=== PATIENT | female | born 1930 | race Caucasian/White ===

== ENCOUNTER 2016-04-02 05:16 | Inpatient (IN) | payer MEDICARE ==
[2016-04-02] VITALS (15 sets, daily range): BP systolic 155–202; BP diastolic 74–100; PULSE 79–101; RESP 16–20; TEMP 98–100; O2SAT 92–97
[~2016-04-02] VITALS: Ht 160 cm; Wt 66.6 kg
[~2016-04-02 05:16] MED LIST: ENOX40P SQ; HYDR-3129 PO; HYDR10 PO; LACTCAP7 PO; MAGN250T13 PO; NEBI5 PO; NIFE1TAB85 PO; SYNT100T PO; TAB-TAB PO
[2016-04-02] MEDS ORDERED: MAGN250T2 PO (05:43)
[2016-04-02] MEDS ORDERED: NIFE1TAB85 PO (05:43)
[2016-04-02] MEDS ORDERED: HYDR-755 PO (05:43)
[2016-04-02] MEDS ORDERED: MULT1TAB84 PO (05:43)
[2016-04-02] MEDS ORDERED: LEVO.125 PO (05:43)
--- NOTE | 2016-04-02 05:53 | PD ---
HPI Chief Complaint: Respiratory Symptoms Time Seen by Provider: 05:33 Travel History International Travel<30 days: No Contact w/Intl Traveler<30days: No Traveled to known affect area: No History of Present Illness HPI The patient is an 86-year-old female who has a history of congestive heart failure who complains of shortness of breath for 2 days. She says it's like she can't take a deep breath. She states her just 6 days ago. She denies any chest discomfort except for a sharp, pleuritic chest pain on the left lateral-anterior chest wall. She does not smoke. She does not have a history of COPD. 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) Hiatal Hernia: No Hypertension: Yes Immune Disorder: Yes (UNKNOWN NAME TO AUTOIMMUNE DIS.) Implanted Vascular Access Dvce: Yes Musculoskeletal: Yes (ARTHRITIS ) Neurologic: No Psychiatric: No Reproductive: No Respiratory: No Immunizations Current: Yes Thyroid Disease: Yes (HYPOTHYROIDISM) Ulcer: Yes Menopausal: Yes Ovarian Cysts: Yes ("REMOVED") Past Surgical History Abdominal Surgery: No ( COLOSTOMY, REVERSED COLOSTOMY,PEG TUBE, SIGMOID COLECTOMY,CHOLY,APPY) AICD: No Appendectomy: Yes Arteriovenous Shunt: No Body Medical Devices: MESH IN ABDOMEN Cardiac Surgery: No Ear Surgery: No Endocrine Surgery: No Eye Surgery: Yes (MANDY CATARACT WITH LENS IMPLANT) Genitourinary Surgery: No Gynecologic Surgery: Yes (CYST REMOVED FROM OVARY, HYSTERECTOMY) Hysterectomy: Yes Joint Replacement: Yes (RIGHT KNEE) Oral Surgery: Yes (TONSILLECTOMY) Pacemaker: No Thoracic Surgery: No Other Surgery: Yes Social History Alcohol Use: Yes (RARELY) Tobacco Use: No Substance Use: No Allergies-Medications (Allergen,Severity, Reaction): Coded Allergies: Cipro (Unverified Allergy, Severe, AFFECTS ABILITY TO WALK, 04/02/16) Levaquin (Verified Allergy, Severe, AFFECTED NERVES, 04/02/16) Reported Meds & Prescriptions Reported Meds & Active Scripts Active Lasix (Furosemide) 20 Mg Tab 20 Mg PO DAILY Reported Procardia XL (Nifedipine) 30 Mg Tab 30 Mg PO DAILY Multivitamin Adults (Multiple Vitamins W/ Minerals) 1 Tab 1 Tab PO DAILY Magnesium 250 Mg Tab 250 Mg PO DAILY Synthroid (Levothyroxine Sodium) 125 Mcg Tab 125 Mcg PO DAILY Hydroxyzine HCl 10 Mg Tab 10 Mg PO HS PRN Review of Systems Except as stated in HPI: all other systems reviewed are Neg Physical Exam Narrative GENERAL: The patient is alert, oriented 3, slightly anxious in no respiratory distress. The pulse rate is 101 and blood pressure 199/86. The rest the vital signs are normal. Oximetry is 97% on room air. SKIN: Warm and dry. HEAD: Atraumatic. Normocephalic. EYES: Pupils equal and round. No scleral icterus. No injection or drainage. ENT: No nasal bleeding or discharge. Mucous membranes pink and moist. NECK: Trachea midline. No JVD. CARDIOVASCULAR: Regular rate and rhythm except for occasional PVC-type irregularity. No murmur appreciated. RESPIRATORY: No accessory muscle use. A few bibasilar rails are heard. Breath sounds equal bilaterally. GASTROINTESTINAL: Abdomen soft, non-tender, nondistended. Hepatic and splenic margins not palpable. MUSCULOSKELETAL: No obvious deformities. No clubbing. No cyanosis. There is 1 + bilateral lower extremity edema. NEUROLOGICAL: Awake and alert. No obvious cranial nerve deficits. Motor grossly within normal limits. Normal speech. PSYCHIATRIC: Appropriate mood and affect; insight and judgment normal. Data Data Last Documented VS Vital Signs Date Time Temp Pulse Resp B/P Pulse Ox O2 Delivery O2 Flow Rate FiO2 04/02/16 06:49 88 20 184/90 04/02/16 06:40 94 Room Air 04/02/16 05:25 99.6 Orders Complete Blood Count With Diff (04/02/16 05:39) Comprehensive Metabolic Panel (04/02/16 05:39) Electrocardiogram (04/02/16 ) Troponin I (04/02/16 05:39) B-Type Natriuretic Peptide (04/02/16 05:42) Ecg Monitoring (04/02/16 05:42) Bilateral Bp Monitoring (04/02/16 05:42) Iv Access Insert/Monitor (04/02/16 05:42) Oximetry (04/02/16 05:42) Oxygen Administration (04/02/16 05:42) Sodium Chloride 0.9% Flush (Ns Flush) (04/02/16 05:45) Chest, Pa & Lat (04/02/16 05:42) Ckmb (Isoenzyme) Profile (04/02/16 05:39) Magnesium (Mg) (04/02/16 05:39) Furosemide Inj (Lasix Inj) (04/02/16 06:30) Nitroglycerin Sl (Nitrostat Sl) (04/02/16 06:45) Admit Order (Ed Use Only) (04/02/16 06:50) Labs Laboratory Tests Test 04/02/16 05:40 White Blood Count 10.6 TH/MM3 Red Blood Count 4.03 MIL/MM3 Hemoglobin 11.9 GM/DL Hematocrit 35.8 % Mean Corpuscular Volume 88.7 FL Mean Corpuscular Hemoglobin 29.6 PG Mean Corpuscular Hemoglobin 33.4 % Concent Red Cell Distribution Width 13.2 % Platelet Count 362 TH/MM3 Mean Platelet Volume 8.2 FL Neutrophils (%) (Auto) 78.3 % Lymphocytes (%) (Auto) 12.9 % Monocytes (%) (Auto) 6.0 % Eosinophils (%) (Auto) 2.6 % Basophils (%) (Auto) 0.2 % Neutrophils # (Auto) 8.3 TH/MM3 Lymphocytes # (Auto) 1.4 TH/MM3 Monocytes # (Auto) 0.6 TH/MM3 Eosinophils # (Auto) 0.3 TH/MM3 Basophils # (Auto) 0.0 TH/MM3 CBC Comment DIFF FINAL Differential Comment Sodium Level 142 MEQ/L Potassium Level 4.1 MEQ/L Chloride Level 106 MEQ/L Carbon Dioxide Level 25.7 MEQ/L Anion Gap 10 MEQ/L Blood Urea Nitrogen 23 MG/DL Creatinine 1.60 MG/DL Estimat Glomerular Filtration 31 ML/MIN Rate Random Glucose 89 MG/DL Calcium Level 9.5 MG/DL Magnesium Level 2.6 MG/DL Total Bilirubin 0.5 MG/DL Aspartate Amino Transf 15 U/L (AST/SGOT) Alanine Aminotransferase 13 U/L (ALT/SGPT) Alkaline Phosphatase 62 U/L Total Creatine Kinase 48 U/L Troponin I 0.10 NG/ML B-Type Natriuretic Peptide 3271 PG/ML Total Protein 7.3 GM/DL Albumin 3.2 GM/DL MDM Medical Decision Making Medical Screen Exam Complete: Yes Emergency Medical Condition: Yes Medical Record Reviewed: Yes Interpretation(s) The EKG shows sinus rhythm with a rate of 91 and frequent PACs, left ventricular hypertrophy but no acute change. There is essentially no significant change from an EKG taken in 2009. The CBC is normal except for 78% neutrophils. The complete metabolic profile shows a BUN of 23, creatinine 1.6 with a GFR 31 and albumen of 3.2. The cardiac enzymes show a normal CK but the troponin I is 0.1. The BNP is 3271. The magnesium level is 2.6. Differential Diagnosis Anxiety/hyperventilation, congestive heart failure, COPD with acute exacerbation unlikely, acute coronary syndromeunlikely, electrolyte disorder, renal insufficiency, anemia Narrative Course The patient has congestive heart failure. Her blood pressure is elevated but this should come down successfully with nitroglycerin and Lasix. There is no change on the patient's EKG and I suspect the likely reason for the elevated troponin is her congestive heart failure rather than coronary ischemia. I spoke with Dr. Juan Bueno's physician hotel assistant manager and she will have Dr. Martinez write orders for admission here at [place]. Diagnosis Primary Impression: Congestive heart failure (CHF) Additional Impressions: Elevated troponin I level Elevated blood pressure reading Admitting Information Admitting Physician Requests: Admit Scripts Furosemide (Lasix)20 Mg Tab20 Mg PO DAILY #30 TAB Ref 0 Prov:Srikanth Gilmore MD 04/02/16 Srikanth Gilmore MD Apr 02, 2016 05:53
[2016-04-02 05:55] LABS: AUTOMATED NEUTROPHIL # 8.3 TH/MM3 (1.8-7.7); BASOPHIL % 0.2 % (0.0-2.0); EOSINOPHIL # 0.3 TH/MM3 (0-0.4); EOSINOPHIL % 2.6 % (0.0-4.0); HEMATOCRIT 35.8 % (35.0-46.0); HEMO FLAGS DIFF FINAL; LYMPH % 12.9 % (9.0-44.0); LYMPHOCYTE # 1.4 TH/MM3 (1.0-4.8); MEAN CELL VOLUME 88.7 FL (80.0-100.0); MEAN CORPUSCULAR HEMOGLOBIN 29.6 PG (27.0-34.0); MEAN CORPUSCULAR HGB CONC 33.4 % (32.0-36.0); NEUT % 78.3 % (16.0-70.0); PLATELET COUNT 362 TH/MM3 (150-450); RED BLOOD COUNT 4.03 MIL/MM3 (4.00-5.30); RED CELL DISTRIBUTION WIDTH 13.2 % (11.6-17.2); WHITE BLOOD COUNT 10.6 TH/MM3 (4.0-11.0)
[2016-04-02 06:05] LABS: CHLORIDE 106 MEQ/L (98-107); POTASSIUM 4.1 MEQ/L (3.5-5.1); SODIUM (NA) 142 MEQ/L (136-145)
[2016-04-02 06:08] LABS: ANION GAP 10 MEQ/L (5-15); BICARBONATE 25.7 MEQ/L (21.0-32.0); BLOOD UREA NITROGEN 23 MG/DL (7-18); MAGNESIUM 2.6 MG/DL (1.5-2.5)
[2016-04-02 06:11] LABS: ALT (GPT) 13 U/L (10-53); AST (GOT) 15 U/L (15-37); GLOMERULAR FILTRATION RATE 31 ML/MIN (>89)
[2016-04-02 06:13] LABS: TOTAL BILIRUBIN ADULT 0.5 MG/DL (0.2-1.0)
[2016-04-02 06:14] LABS: ALKALINE PHOSPHATASE 62 U/L (45-117)
[2016-04-02 06:17] LABS: CREATINE KINASE 48 U/L (26-192)
[2016-04-02] MEDS ORDERED: FURO1TAB62 PO (06:27)
[2016-04-02] MEDS: SODIUM CHLORIDE 0.9% FLUSH 5 ML FLUSH IVF PRN ×2 (06:28→17:39)
[2016-04-02] MEDS ORDERED: FUROSEMIDE 100 MG/10 ML VIAL IV PUSH ONE (06:30)
[2016-04-02] MEDS: NITROGLYCERIN 0.4 MG SL 25 TABS/BTL SL SCH ×3 (06:44→07:03)
--- NOTE | 2016-04-02 06:46 | RADHPO ---
EXAM DATE/TIME: 04/02/2016 06:15 [facility] COMPARISON: CHEST PA & LAT, January 30, 2013, 14:49. INDICATIONS : Patient states chest pains. MEDICAL HISTORY : None. SURGICAL HISTORY : None. ENCOUNTER: Initial ACUITY: 1 day PAIN SCORE: 110 LOCATION: Bilateral chest FINDINGS: PA and lateral views of the chest demonstrate slight interstitial prominence. Heart upper limits of n ormal in size. The cardiomediastinal contours are unremarkable. Osseous structures are intact. CONCLUSION: Slight interstitial prominence, likely chronic. Toby Pagan MD on April 02, 2016 at 6:44 Board Certified Radiologist. This report was verified electronically.
[2016-04-02] MEDS ORDERED: hydrOXYzine HCL 10 MG TAB PO PRN (07:15)
[2016-04-02] MEDS ORDERED: NALOXONE HCL 0.4 MG/ML AMP IV PRN (07:30)
[2016-04-02] MEDS ORDERED: SODIUM CHLORIDE 0.9% FLUSH 5 ML FLUSH FLUSH PRN (07:30)
[2016-04-02] MEDS ORDERED: ACETAMINOPHEN 325 MG TAB PO PRN (08:00)
[2016-04-02] MEDS ORDERED: ENOXAPARIN SODIUM 40 MG/0.4 ML SYRINGE SQ SCH (09:00)
[2016-04-02] MEDS ORDERED: NON-FORMULARY DRUG (Magnesium 250 MG) PO SCH (09:00)
[2016-04-02] MEDS ORDERED: guaiFENesin/DEXTROMETHORPHAN 200 MG/20 MG/10 ML CUP PO PRN (09:00)
--- NOTE | 2016-04-02 09:44 | EKG ---
Date Performed: 04/02/2016 Time Performed: 05:47:06 PTAGE: 86 years EKG: Sinus rhythm with PAC(s) Left ventricular hypertrophy Lateral ST-T changes may be due to hypertrophy and/or ische rocky Abnormal ECG PREVIOUS TRACING : 04/19/2009 13.19 Compared to previous tracing, PACs are now present. DOCTOR: Michael Mccullough Interpretating Date/Time 04/02/2016 09:43:05
[2016-04-02] MEDS: SODIUM CHLORIDE 0.9% FLUSH 5 ML FLUSH FLUSH SCH ×2 (10:53→20:46)
[2016-04-02] MEDS: DOCUSATE SODIUM 100 MG CAP PO SCH ×2 (10:54→20:50)
[2016-04-02] MEDS: ENOXAPARIN SODIUM 30 MG/0.3 ML SYRINGE SQ SCH (10:54)
[2016-04-02] MEDS: NIFEdipine 30 MG SUSTAINED RELEASE TAB PO SCH (10:54)
[2016-04-02] MEDS: NITROGLYCERIN 2% OINT 1 GM PACKET TOPICAL SCH ×3 (11:01→20:51)
[2016-04-02] MEDS: LEVOTHYROXINE SODIUM 125 MCG TAB PO SCH (11:01)
--- NOTE | 2016-04-02 13:25 | MH ---
cc: LUCAS LAW M.D. DATE OF ADMISSION: 04/02/2016 CHIEF COMPLAINT Increasing shortness of breath. HISTORY OF PRESENT ILLNESS Ms. Benavidez is an 86-year-old white female, well-known to me from the office, who has had an upper respiratory infection for the past two weeks since her family visited for the holidays. Her was recently ill with similar symptoms last week and actually on March 28 with complications of the illness and pulmonary fibrosis. She had been doing relatively well at home and feeling a little bit better until yesterday when she felt like her nasal congestion worsened. She had more shortness of breath and could not lay down flat. She notes she barely slept last evening, and due to her increased shortness of breath came to the hospital. She also notes a vague left-sided chest discomfort and back discomfort that improved as she would sit up. She noted some heartburn-like symptoms that started last evening through the evening. She cannot really give me a time course on it, but states that it is resolved now after having had three nitroglycerin in the emergency department. She is feeling better now since having Lasix and nitroglycerin. PAST MEDICAL HISTORY 1. Basal cell cancer of the scalpel. 2. Hypothyroidism. 3. Hyperlipidemia. 4. Chronic anemia. 5. 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 7. Diverticulitis with a left-sided colostomy around that same time that was subsequently reversed. 8. Hypertension, poorly controlled. 9. Moderate aortic regurgitation for which she has declined evaluation or surgery. 10.History of vitiligo. PAST SURGICAL HISTORY 1. Left knee replacement in 2013. 2. Basal cell cancer removal in 2015. 3. Colostomy, status post revision back in 2008. SOCIAL HISTORY She was March 28, 2016. She has rare alcohol. She worked for [employer] for 29 years. She has never smoked. She is not currently employed. She has a son who lives towards [place] and another son in [place]. MEDICATIONS 1. Nifedical 30 mg every morning. 2. Hydroxyzine 25 mg p.r.n. itching. 3. Synthroid 125 mcg daily. 4. Clobetasol p.r.n. for itching and rash. 5. CoQ-10 100 mg, two capsules daily. 6. Magnesium 200 mg, two tablets at bedtime for cramping. ALLERGIES 1. CIPRO CAUSED MUSCLE WEAKNESS. 2. HYDROCODONE CAUSED HER TO ITCH. 3. LABETALOL, SHE FELT BAD. 4. LEVAQUIN CAUSED TENDONITIS. 5. BYSTOLIC CAUSED SWELLING. 6. LASIX, AVOIDING DUE TO KIDNEY FUNCTION ISSUES. 7. LOSARTAN, WHICH SHE DID NOT TOLERATE WELL DUE TO SIDE EFFECTS, ALTHOUGH NOT SPECIFIED. 8. TERAZOSIN, WHICH SHE DID NOT TOLERATE WELL DUE TO SIDE EFFECTS, ALTHOUGH NOT SPECIFIED. FAMILY HISTORY Dad of CHF at age 89. Mom at age 93. She had a sister with breast cancer. Another sister who at age 76 with diabetes, hypertension, heart disease and obesity. A third sister with arthritis, hypertension and at age 62 with possible ovarian or uterine cancer. She has one son in [place] who recently had an acute DE with sudden cardiac who was revived and now down doing well. She has another son who is healthy who lives in [facility]. IMMUNIZATIONS Immunizations have been refused by the patient and she does not do other preventative care. REVIEW OF SYSTEMS Upper respiratory symptoms with sinus congestion. No ear pain. No sore throat but some cough. No swollen glands. She has had the cough and shortness of breath. She was having sputum production about a week and a half ago that has subsequently resolved is now dry and somewhat hacking. She has had a low grade fever that has resolved over the past week. The chest discomfort and some back discomfort that she noticed last night as well as heartburn symptomatology, increasing shortness of breath and orthopnea. She has had lower extremity edema that she states is better at this time after having had the Lasix. She has had no abdominal pain, hematochezia or melena. No dysuria or hematuria. No generalized muscle pains or aches. The remainder of the review of systems is negative. PHYSICAL EXAMINATION VITAL SIGNS: She is afebrile. Her blood pressure was very elevated in the 200s/100 on admission. At the time that I saw her, her blood pressure was running in the 160s/80s, O2 sat 92% on room air, heart rate in the 80s, respiratory rate 17. GENERAL: She is sitting on the side of the bed in no acute distress, speaking in full sentences without difficulty. HEENT: Pupils are equal and reactive to light. Extraocular movements are intact. Tympanic membranes within normal limits bilaterally. Nose no discharge but some sounding of congestion. Oropharynx is without erythema, no exudates, no lesions. NECK: Supple without lymphadenopathy. No supraclavicular adenopathy. She has a bounding right carotid pulse as per her baseline. No carotid bruits. CARDIOVASCULAR: Regular rate and rhythm with a diastolic blowing murmur audible to the anterior chest. No irregularities noted. LUNGS: Clear to auscultation bilaterally. No wheezes, no rhonchi, no egophony. No accessory muscle use noted. ABDOMEN: Her abdomen is nontender while sitting on the bed. EXTREMITIES: Her extremities show 1+ dorsalis pedis pulses. She has ankle and dorsal foot edema 1+. No calf tenderness. She has good range of motion of the extremities. Left knee scar well-healed. LABORATORY DATA White count 10.6, hemoglobin 11.9, hematocrit 35.8, platelets 362. Neutrophils slightly elevated 78.3. Her GFR is 31 which is felt stable for her with a creatinine of 1.6. The remainder of the electrolytes are within normal limits. AST and ALT are within normal limits. CK was 48 and troponin 0.1. BNP slightly high at 3271. Albumin slightly low at 3.2. EKG DATA EKG showed left ventricular hypertrophy with lateral ST changes secondary to either hypertrophy or ischemia. I will have to compare to her EKG that she had the office in the past. ASSESSMENT AND PLAN 1. Chest discomfort with mild CHF and concerns for angina. I have discussed this with the patient multiple times in the past and she declines any further cardiac evaluation. She would like medical management. She specifically requested a [id number] status and wants to be kept as comfortable as possible. I have explained to her that I am suspicious that she did have some cardiac ischemia over the past 24-48 hours with a mild increase in her troponin, although negative CPKs. Given her symptomatology I am concerned that the heartburn feeling that she was having was actually an anginal equivalent. Will start her on nitroglycerin patch, control her blood pressures and treat the congestive heart failure with IV diuretics. Will need to monitor her kidney function closely. She has not yet spoken to her son about coming to the emergency department and I have encouraged her to do so especially in light of her 's recent . Suspect that her recent stressors with her son's sudden cardiac and resuscitation as well as her 's illness and recent passing, along with her upper respiratory infection have all been contributing factors. She declined statin therapy in the past. 2. Aortic insufficiency. This has been a longstanding issue. She had an echocardiogram done in September 2015 that showed abnormal lateral wall movement, LVH with dilation of the left atrium and the right ventricle with an ejection fraction of 50%. We discussed the implications of her valve and that her valve may increase her risks of congestive heart failure of which she is well aware. She states that she does not want to consider surgical options and does not want any further cardiac evaluation, short of comfort and medical management. 3. Chronic kidney disease, stage III. She is relatively stable at this time, but anticipate that she will have some changes with Lasix use. Will monitor closely and recheck her kidney function in the morning. She states that she would never want dialysis and would prefer comfort care. Her kidney function declined back in 2008 when she did have an acute CMV nephritis. 4. Hypertension. Her blood pressures were very elevated in the emergency department. She is normally not under ideal control as an outpatient and she had declined other medications given side effects. She normally runs in the 140-150 range as an outpatient, but definitely not in the 200s. May consider placing her on Imdur as an outpatient for control of all symptoms. 5. Elevated magnesium level. I will stop her magnesium supplement that she has been taking. MD THOMAS Espinoza/CEFERINO /12:32 PM /12:52 PM
[2016-04-02] MEDS: FUROSEMIDE 40 MG/4 ML VIAL IV PUSH SCH (17:38)
[2016-04-02] MEDS ORDERED: cefTRIAXone INJ 1,000 MG in SODIUM CHLORIDE 0.9% INJ 100 ML IV SCH (20:00)
[2016-04-03] VITALS: BP 140/60; PULSE 76; RESP 16; TEMP 98.8; O2SAT 92
[2016-04-03 04:00] VITALS: BP 153/76; PULSE 81; RESP 18; TEMP 95.1; O2SAT 56; O2SAT 96
[2016-04-03] MEDS: LEVOTHYROXINE SODIUM 125 MCG TAB PO SCH (06:09)
[2016-04-03] MEDS: NITROGLYCERIN 2% OINT 1 GM PACKET TOPICAL SCH (06:09)
[2016-04-03 06:32] LABS: POTASSIUM 3.8 MEQ/L (3.5-5.1)
[2016-04-03 06:35] LABS: BICARBONATE 29.5 MEQ/L (21.0-32.0)
[2016-04-03 08:00] VITALS: BP 135/82; PULSE 80; RESP 20; TEMP 97.8; O2SAT 94
[2016-04-03] MEDS ORDERED: ISOS20TA PO (09:00)
[2016-04-03] MEDS ORDERED: ASPI81TA81 PO (09:00)
[2016-04-03] MEDS ORDERED: FURO1TAB62 PO (09:00)
[2016-04-03] MEDS ORDERED: CEFT250T8 PO (09:07)
--- NOTE | 2016-04-03 09:07 | HHI.DS ---
Discharge Summary Admission Date Apr 02, 2016 at 06:51 Discharge Date: Apr 03, 2016 Admitting Diagnosis congestive heart failure, elevated troponin I (1) Congestive heart failure (CHF) Diagnosis: Principal Plan: Much better with diuretic. Suspect combo of stress of 's , son's recent illness, her recent URI, and her existing aortic insufficiency and likely cardiovascular disease as a cause. (2) Elevated blood pressure reading Diagnosis: Principal Plan: much better after fluid reduction and med adjustment. Will send home on imdur, asa, nifedipine, and lasix prn (3) Elevated troponin I level Diagnosis: Principal Plan: suspect cardiac ischemia as the cause of her CHF and symptoms. She declines further eval. Requests discharge to home with outpatient management. She has asked for DNR status, doesn't want intervention. She is aware of options for hospice when that time arrives, however she is getting along well. Her sister will be coming down for a while and she has close friends to check on her now. Son in [place] (4) CKD (chronic kidney disease) Diagnosis: Secondary Plan: slightly worse after diuretics, recheck next week. (5) Anemia in CKD (chronic kidney disease) Diagnosis: Secondary Plan: stable (6) Upper respiratory infection Diagnosis: Secondary Plan: due to prolonged course, will treat with ceftin for 5 days since still with low grade fever (7) Aortic insufficiency Diagnosis: Secondary Plan: contributing factor to CHF. Brief History 86 yo WF with chest pressure, heart burn, shortness of breath and orthopnea for 1 day prior to admission CBC/BMP: 04/02/16 0540 04/03/16 0600 Significant Findings Laboratory Tests Test 04/02/16 04/02/16 04/02/16 04/03/16 05:40 11:30 17:40 06:00 Neutrophils (%) (Auto) 78.3 % (16.0-70.0) Neutrophils # (Auto) 8.3 TH/MM3 (1.8-7.7) Blood Urea Nitrogen 23 MG/DL (7-18) 23 MG/DL (7-18) Creatinine 1.60 MG/DL 1.90 MG/DL (0.50-1.00) (0.50-1.00) Estimat Glomerular Filtration 31 ML/MIN (>89) 25 ML/MIN (>89) Rate Magnesium Level 2.6 MG/DL (1.5-2.5) Troponin I 0.10 NG/ML 0.13 NG/ML 0.13 NG/ML (0.02-0.05) (0.02-0.05) (0.02-0.05) B-Type Natriuretic Peptide 3271 PG/ML (0-100) Albumin 3.2 GM/DL (3.4-5.0) PE at Discharge Gen: up and walking about room, speaking well, no distress, anxious to go home CV: RRR, II/ diastolic blowing murmur Lungs: CTA bilaterally, no wheezing Abd: NT Ext: edema resolved to the ankles. Hospital Course Pt improved in symptoms with meds, diuretics. BPs returned to normal. Troponins elevated. EKG with lateral ischemic changes possibly due to LVH (not significantly changed from prior EKGs). She declined further cardiac eval so will treat medically Pt Condition on Discharge: Good Discharge Disposition: Discharge Home Discharge Instructions DIET: Follow Instructions for: Heart Healthy Diet Activities you can perform: Regular-No Restrictions Other Activity Instructions: Stop activity if increasing chest discomfort or shortness of breath, f/u with Dr. Martinez in 1 week with BMP prior Natalie Martinez MD Apr 03, 2016 09:07
[2016-04-03] MEDS: NIFEdipine 30 MG SUSTAINED RELEASE TAB PO SCH (09:45)
[2016-04-03] MEDS: ENOXAPARIN SODIUM 30 MG/0.3 ML SYRINGE SQ SCH (09:46)
[2016-04-03] MEDS: FUROSEMIDE 40 MG/4 ML VIAL IV PUSH SCH (09:46)
[2016-04-03] MEDS: SODIUM CHLORIDE 0.9% FLUSH 5 ML FLUSH FLUSH SCH (09:46)
[2016-04-03] MEDS: DOCUSATE SODIUM 100 MG CAP PO SCH (09:46)
--- NOTE | 2016-04-03 14:14 | EKG ---
Date Performed: 04/02/2016 Time Performed: 11:36:16 PTAGE: 86 years EKG: Sinus rhythm with PAC(s). Left ventricular hypertrophy Extensive ST-T changes are probably due to ventricular hyp ertrophy Abnormal ECG PREVIOUS TRACING : 04/02/2016 05.47 Since previous tracing, no significant change noted DOCTOR: Nathen Fermin Interpretating Date/Time 04/03/2016 14:06:35
== END 2016-04-03 12:10 | disposition home or self-care (01) | DRG 293 ==
LOC: PHED 05:16 → PHEDA 06:51 → PH3A 08:50
PROVIDERS: ADMIT Family Medicine; ATTEND Family Medicine
DX: I50.9 Heart failure, unspecified (principal); I35.1 Nonrheumatic aortic (valve) insufficiency; N18.3 Chronic kidney disease, stage 3 (moderate); D63.1 Anemia in chronic kidney disease; I12.9 Hypertensive chronic kidney disease with stage 1 through stage 4 chronic kidney disease, or unspecified chronic kidney disease; E03.9 Hypothyroidism, unspecified; R74.8 Abnormal levels of other serum enzymes; I25.10 Atherosclerotic heart disease of native coronary artery without angina pectoris; N28.9 Disorder of kidney and ureter, unspecified; M17.11 Unilateral primary osteoarthritis, right knee; M47.9 Spondylosis, unspecified; Z86.19 Personal history of other infectious and parasitic diseases; E78.5 Hyperlipidemia, unspecified; Z66 Do not resuscitate; J06.9 Acute upper respiratory infection, unspecified; Z85.828 Personal history of other malignant neoplasm of skin; Z96.652 Presence of left artificial knee joint; Z80.3 Family history of malignant neoplasm of breast; Z83.3 Family history of diabetes mellitus; Z82.49 Family history of ischemic heart disease and other diseases of the circulatory system
CPT/HCPCS: 71020; 80048; 80053; 82550; 83735; 83880; 84484; 85025; 93005; 96374; J0696; J1650; J1940

== ENCOUNTER → 2016-04-12 | Outpatient (CLI) | payer MEDICARE ==
[~2016-04-12] MED LIST changes: +ASPI81TA81 PO; +CEFT250T8 PO; -ENOX40P SQ; +FURO1TAB62 PO; -HYDR-3129 PO; +HYDR-755 PO; -HYDR10 PO; +ISOS20TA PO; -LACTCAP7 PO; +LEVO.125 PO; -MAGN250T13 PO; +MULT1TAB84 PO; -NEBI5 PO; -SYNT100T PO; -TAB-TAB PO
[2016-04-12 16:13] LABS: BICARBONATE 30.1 MEQ/L (21.0-32.0); POTASSIUM 4.4 MEQ/L (3.5-5.1)
[2016-04-12 16:15] LABS: HDL CHOLESTEROL 63.9 MG/DL (40.0-60.0)
== END ==
LOC: PLAB 11:57
PROVIDERS: ATTEND Family Medicine
DX: I50.9 Heart failure, unspecified (principal); I20.9 Angina pectoris, unspecified
CPT/HCPCS: 36415; 80048; 80061

== ENCOUNTER → 2016-07-12 | Outpatient (CLI) | payer MEDICARE ==
[2016-07-12 12:50] LABS: AUTOMATED NEUTROPHIL # 3.2 TH/MM3 (1.8-7.7); BASOPHIL % 0.5 % (0.0-2.0); EOSINOPHIL # 0.2 TH/MM3 (0-0.4); EOSINOPHIL % 4.4 % (0.0-4.0); HEMATOCRIT 33.8 % (35.0-46.0); HEMO FLAGS DIFF FINAL; LYMPH % 21.5 % (9.0-44.0); LYMPHOCYTE # 1.1 TH/MM3 (1.0-4.8); MEAN CELL VOLUME 87.8 FL (80.0-100.0); MEAN CORPUSCULAR HEMOGLOBIN 28.8 PG (27.0-34.0); MEAN CORPUSCULAR HGB CONC 32.8 % (32.0-36.0); MONO % 10.8 % (0.0-8.0); NEUT % 62.8 % (16.0-70.0); PLATELET COUNT 262 TH/MM3 (150-450); RED BLOOD COUNT 3.85 MIL/MM3 (4.00-5.30); RED CELL DISTRIBUTION WIDTH 14.6 % (11.6-17.2); WHITE BLOOD COUNT 5.2 TH/MM3 (4.0-11.0)
[2016-07-12 13:00] LABS: CHLORIDE 108 MEQ/L (98-107); POTASSIUM 3.8 MEQ/L (3.5-5.1); SODIUM (NA) 145 MEQ/L (136-145)
[2016-07-12 13:05] LABS: ANION GAP 8 MEQ/L (5-15); BICARBONATE 28.7 MEQ/L (21.0-32.0)
[2016-07-12 13:06] LABS: BLOOD UREA NITROGEN 32 MG/DL (7-18)
[2016-07-12 13:08] LABS: ALT (GPT) 15 U/L (10-53)
[2016-07-12 13:09] LABS: AST (GOT) 16 U/L (15-37); GLOMERULAR FILTRATION RATE 31 ML/MIN (>89)
[2016-07-12 13:10] LABS: TOTAL BILIRUBIN ADULT 0.4 MG/DL (0.2-1.0)
[2016-07-12 13:11] LABS: ALKALINE PHOSPHATASE 51 U/L (45-117)
[2016-07-12 13:25] LABS: CREATINE KINASE 45 U/L (26-192)
== END ==
LOC: PLAB 12:05
PROVIDERS: ATTEND Family Medicine
DX: R00.2 Palpitations (principal); R06.02 Shortness of breath; R94.31 Abnormal electrocardiogram [ECG] [EKG]
CPT/HCPCS: 36415; 80053; 82550; 84443; 84484; 85025

== ENCOUNTER → 2016-08-27 | Outpatient (CLI) | payer MEDICARE ==
[2016-08-27 12:58] LABS: AUTOMATED NEUTROPHIL # 2.7 TH/MM3 (1.8-7.7); EOSINOPHIL # 0.3 TH/MM3 (0-0.4); EOSINOPHIL % 6.6 % (0.0-4.0); HEMATOCRIT 34.3 % (35.0-46.0); HEMO FLAGS DIFF FINAL; LYMPH % 22.6 % (9.0-44.0); LYMPHOCYTE # 1.1 TH/MM3 (1.0-4.8); MEAN CELL VOLUME 88.8 FL (80.0-100.0); MEAN CORPUSCULAR HEMOGLOBIN 29.5 PG (27.0-34.0); MEAN CORPUSCULAR HGB CONC 33.3 % (32.0-36.0); MONO % 12.2 % (0.0-8.0); NEUT % 57.6 % (16.0-70.0); PLATELET COUNT 226 TH/MM3 (150-450); RED BLOOD COUNT 3.87 MIL/MM3 (4.00-5.30); RED CELL DISTRIBUTION WIDTH 15.8 % (11.6-17.2); WHITE BLOOD COUNT 4.7 TH/MM3 (4.0-11.0)
[2016-08-27 13:25] LABS: ANION GAP 7 MEQ/L (5-15); AST (GOT) 17 U/L (15-37); BICARBONATE 28.9 MEQ/L (21.0-32.0); BLOOD UREA NITROGEN 31 MG/DL (7-18); CHLORIDE 105 MEQ/L (98-107); GLOMERULAR FILTRATION RATE 26 ML/MIN (>89); GLUCOSE,FASTING 82 MG/DL (74-99); POTASSIUM 4.6 MEQ/L (3.5-5.1); SODIUM (NA) 141 MEQ/L (136-145)
[2016-08-27 13:37] LABS: ALKALINE PHOSPHATASE 45 U/L (45-117); ALT (GPT) 20 U/L (10-53); TOTAL BILIRUBIN ADULT 0.5 MG/DL (0.2-1.0)
== END ==
LOC: PLAB 11:24
PROVIDERS: ATTEND Family Medicine
DX: E03.9 Hypothyroidism, unspecified (principal); N18.3 Chronic kidney disease, stage 3 (moderate)
CPT/HCPCS: 36415; 80053; 84443; 85025

== ENCOUNTER → 2016-09-06 | Outpatient (CLI) | payer MEDICARE ==
[2016-09-06 12:59] LABS: HDL CHOLESTEROL 67.9 MG/DL (40.0-60.0)
== END ==
LOC: PLAB 09:42
PROVIDERS: ATTEND Internal Medicine Interventional Cardiology
DX: E78.2 Mixed hyperlipidemia (principal)
CPT/HCPCS: 36415; 80061

== ENCOUNTER → 2016-11-29 | Outpatient (CLI) | payer MEDICARE ==
[2016-11-29 13:48] LABS: ANION GAP 6 MEQ/L (5-15); AST (GOT) 9 U/L (15-37); BICARBONATE 28.8 MEQ/L (21.0-32.0); BLOOD UREA NITROGEN 45 MG/DL (7-18); CHLORIDE 108 MEQ/L (98-107); GLOMERULAR FILTRATION RATE 29 ML/MIN (>89); GLUCOSE,FASTING 74 MG/DL (74-99); POTASSIUM 4.5 MEQ/L (3.5-5.1); SODIUM (NA) 143 MEQ/L (136-145)
[2016-11-29 14:02] LABS: ALKALINE PHOSPHATASE 39 U/L (45-117); ALT (GPT) 11 U/L (10-53); CREATINE KINASE 34 U/L (26-192); HDL CHOLESTEROL 55.9 MG/DL (40.0-60.0); LDL CHOLESTEROL 90 MG/DL (0-99); TOTAL BILIRUBIN ADULT 0.5 MG/DL (0.2-1.0)
== END ==
LOC: PLAB 09:59
PROVIDERS: ATTEND Internal Medicine Interventional Cardiology
DX: E78.2 Mixed hyperlipidemia (principal); E03.8 Other specified hypothyroidism; I20.9 Angina pectoris, unspecified; I50.9 Heart failure, unspecified; N18.3 Chronic kidney disease, stage 3 (moderate); Z79.899 Other long term (current) drug therapy
CPT/HCPCS: 36415; 80053; 80061; 82248; 82550; 84443

== ENCOUNTER → 2017-05-31 | Outpatient (CLI) | payer MEDICARE ==
[2017-05-31 14:01] LABS: ALBUMIN 3.4 GM/DL (3.4-5.0); AST (GOT) 16 U/L (15-37); BICARBONATE 29.1 MEQ/L (21.0-32.0); BLOOD UREA NITROGEN 31 MG/DL (7-18); CALCIUM 9.1 MG/DL (8.5-10.1); CHLORIDE 109 MEQ/L (98-107); CREATININE 1.67 MG/DL (0.50-1.00); GLOMERULAR FILTRATION RATE 29 ML/MIN (>89); GLUCOSE,RANDOM 91 MG/DL (74-106); SODIUM (NA) 143 MEQ/L (136-145)
[2017-05-31 14:12] LABS: ALKALINE PHOSPHATASE 48 U/L (45-117); ALT (GPT) 22 U/L (10-53); TOTAL BILIRUBIN ADULT 0.5 MG/DL (0.2-1.0); TOTAL PROTEIN 6.7 GM/DL (6.4-8.2)
[2017-05-31 14:14] LABS: AUTOMATED NEUTROPHIL # 2.8 TH/MM3 (1.8-7.7); BASOPHIL % 1.1 % (0.0-2.0); EOSINOPHIL # 0.3 TH/MM3 (0-0.4); EOSINOPHIL % 6.2 % (0.0-4.0); HEMATOCRIT 32.9 % (35.0-46.0); HEMOGLOBIN 11.3 GM/DL (11.6-15.3); LYMPH % 16.8 % (9.0-44.0); LYMPHOCYTE # 0.7 TH/MM3 (1.0-4.8); MEAN CELL VOLUME 90.6 FL (80.0-100.0); MEAN CORPUSCULAR HEMOGLOBIN 31.1 PG (27.0-34.0); MEAN CORPUSCULAR HGB CONC 34.3 % (32.0-36.0); MEAN PLATELET VOLUME 8.8 FL (7.0-11.0); MONO % 12.1 % (0.0-8.0); MONOCYTE # 0.5 TH/MM3 (0-0.9); NEUT % 63.8 % (16.0-70.0); PLATELET COUNT 223 TH/MM3 (150-450); RED BLOOD COUNT 3.63 MIL/MM3 (4.00-5.30); RED CELL DISTRIBUTION WIDTH 14.8 % (11.6-17.2); WHITE BLOOD COUNT 4.4 TH/MM3 (4.0-11.0)
== END ==
LOC: PLAB 10:25
PROVIDERS: ATTEND Family Medicine
DX: I13.0 Hypertensive heart and chronic kidney disease with heart failure and stage 1 through stage 4 chronic kidney disease, or unspecified chronic kidney disease (principal); I50.9 Heart failure, unspecified; N18.4 Chronic kidney disease, stage 4 (severe); I20.9 Angina pectoris, unspecified; E03.8 Other specified hypothyroidism
CPT/HCPCS: 36415; 80053; 83970; 84443; 85025

== ENCOUNTER 2017-06-16 12:10 | Inpatient (IN) | payer MEDICARE ==
[~2017-06-16] VITALS: Ht 157.5 cm; Wt 60.7 kg
[2017-06-16] VITALS (10 sets, daily range): BP systolic 83–192; BP diastolic 49–85; PULSE 60–75; RESP 18–20; TEMP 97.6–98.1; O2SAT 94–98
[2017-06-16] MEDS ORDERED: CRANCAP2 PO (12:34)
[2017-06-16] MEDS ORDERED: CQ10 PO (12:34)
[2017-06-16] MEDS ORDERED: HYDR-3801 PO (12:34)
[2017-06-16] MEDS ORDERED: MAGN400T2 PO (12:34)
[2017-06-16] MEDS ORDERED: LACTCAP8 PO (12:34)
[2017-06-16] MEDS ORDERED: CARV6.252 PO (12:34)
[2017-06-16] MEDS ORDERED: SODIUM CHLORIDE 0.9% FLUSH 10 ML FLUSH IVF PRN (13:00)
[2017-06-16] MEDS ORDERED: FUROSEMIDE 40 MG/4 ML VIAL IVP ONE (13:00)
--- NOTE | 2017-06-16 13:15 | PD ---
HPI Chief Complaint: Respiratory Symptoms Time Seen by Provider: 12:49 Travel History International Travel<30 days: No Contact w/Intl Traveler<30days: No Traveled to known affect area: No History of Present Illness HPI 87-year-old female arrives with increasing shortness of breath for the past week approximately. Dyspnea on exertion is reported. Increasing bilateral lower extremity edema is reported. Compliance to Lasix is reported as well as dietary guidelines. There is no chest pain. Occasional cough is reported. Associated symptoms include orthopnea. No fever. 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) Hiatal Hernia: No Hypertension: Yes Immune Disorder: Yes Implanted Vascular Access Dvce: Yes Medical other: Yes (THROMBUS LT LEG ,MANDY LOWER EXT LYMPHEDEMA,VITIGLIO,HX CMV) Musculoskeletal: Yes Neurologic: No Psychiatric: No Reproductive: No Respiratory: Yes Immunizations Current: Yes Thyroid Disease: Yes (HYPOTHYROIDISM) Ulcer: Yes Menopausal: Yes Ovarian Cysts: Yes ("REMOVED") Past Surgical History Abdominal Surgery: Yes ( COLOSTOMY, REVERSED COLOSTOMY,PEG TUBE, SIGMOID COLECTOMY,CHOLY,APPY) AICD: No Appendectomy: Yes Arteriovenous Shunt: No Body Medical Devices: MESH IN ABDOMEN Cardiac Surgery: No Ear Surgery: No Endocrine Surgery: No Eye Surgery: Yes (MANDY CATARACT WITH LENS IMPLANT) Genitourinary Surgery: No Gynecologic Surgery: Yes (CYST REMOVED FROM OVARY, HYSTERECTOMY) Hysterectomy: Yes Joint Replacement: Yes (RIGHT AND LEFT KNEE) Oral Surgery: Yes (TONSILLECTOMY) Pacemaker: No Thoracic Surgery: No Other Surgery: Yes Social History Alcohol Use: Yes (RARELY) Tobacco Use: No Substance Use: No Allergies-Medications (Allergen,Severity, Reaction): Coded Allergies: ciprofloxacin (Unverified Allergy, Severe, AFFECTS ABILITY TO WALK, ) levofloxacin (Unverified Allergy, Severe, AFFECTED NERVES, 06/16/17) Reported Meds & Prescriptions Reported Meds & Active Scripts Active Lasix (Furosemide) 20 Mg Tab 20 Mg PO DAILY Isosorbide Mononitrate 20 Mg Tab 20 Mg PO DAILY Take 2 doses 7 hours apart. Reported Probiotic (Lactobacillus Acidophilus) 10 Billion Cell Cap Unknown Dose PO TIDAC [Cq10] 100 Mg PO DAILY Magnesium Oxide 400 Mg Tab 400 Mg PO DAILY Cranberry Urinary Comfort (Vitamins C & E) 1 Cap 1 Cap PO DAILY Carvedilol 6.25 Mg Tab 6.25 Mg PO BID Hydralazine (Hydralazine HCl) 100 Mg Tab 25 Mg PO BID Take with meals Procardia XL (Nifedipine) 30 Mg Tab 30 Mg PO DAILY Synthroid (Levothyroxine Sodium) 125 Mcg Tab 125 Mcg PO DAILY Review of Systems Except as stated in HPI: all other systems reviewed are Neg General / Constitutional: No: Fever Cardiovascular: Positive: Edema, No: Chest Pain or Discomfort Respiratory: Positive: Cough, Shortness of Breath Physical Exam Narrative GENERAL: 87-year-old female pleasant well-nourished well-developed Vital Signs Date Time Temp Pulse Resp B/P (MAP) Pulse Ox O2 Delivery O2 Flow Rate FiO2 06/16/17 13:29 98 06/16/17 13:29 Nasal Cannula 2.00 06/16/17 13:28 68 20 189/74 (112) 97 06/16/17 12:15 97.6 67 20 192/81 (118) 94 SKIN: Warm and dry. HEAD: Atraumatic. Normocephalic. EYES: Pupils equal and round. No scleral icterus. No injection or drainage. ENT: No nasal bleeding or discharge. Mucous membranes pink and moist. NECK: Trachea midline. No JVD. CARDIOVASCULAR: Regular rate and rhythm. RESPIRATORY: No accessory muscle use. Clear to auscultation. Breath sounds equal bilaterally. GASTROINTESTINAL: Abdomen soft, non-tender, nondistended. Hepatic and splenic margins not palpable. MUSCULOSKELETAL: 4+ pitting edema bilateral lower extremities. Range of motion normal throughout. NEUROLOGICAL: Awake and alert. No obvious cranial nerve deficits. Motor grossly within normal limits. Five out of 5 muscle strength in the arms and legs. Normal speech. PSYCHIATRIC: Appropriate mood and affect; insight and judgment normal. Data Data Last Documented VS Vital Signs Date Time Temp Pulse Resp B/P (MAP) Pulse Ox O2 Delivery O2 Flow Rate FiO2 06/16/17 14:49 61 20 188/85 (119) 98 Nasal Cannula 2.00 06/16/17 12:15 97.6 Orders Orders Complete Blood Count With Diff (06/16/17 12:49) Basic Metabolic Panel (Bmp) (06/16/17 12:49) B-Type Natriuretic Peptide (06/16/17 12:49) Magnesium (Mg) (06/16/17 12:49) Ckmb (Isoenzyme) Profile (06/16/17 12:49) Troponin I (06/16/17 12:49) Iv Access Insert/Monitor (06/16/17 12:49) Electrocardiogram (06/16/17 12:49) Ecg Monitoring (06/16/17 12:49) Oximetry (06/16/17 12:49) Oxygen Administration (06/16/17 12:49) Chest, Single Ap (06/16/17 12:49) Sodium Chloride 0.9% Flush (Ns Flush) (06/16/17 13:00) Furosemide Inj (Lasix Inj) (06/16/17 13:00) Ed Discharge Order (06/16/17 14:33) Admit Order (Ed Use Only) (06/16/17 ) Front Worker / Telemetry TROY.Q8H (06/16/17 14:57) Vital Signs (Adult) Q4H (06/16/17 14:57) Diet Heart Healthy (06/16/17 Dinner) Activity Bed Rest (06/16/17 14:57) Labs Laboratory Tests Test 06/16/17 13:25 White Blood Count 3.8 TH/MM3 Red Blood Count 3.91 MIL/MM3 Hemoglobin 11.9 GM/DL Hematocrit 35.4 % Mean Corpuscular Volume 90.4 FL Mean Corpuscular Hemoglobin 30.4 PG Mean Corpuscular Hemoglobin Concent 33.6 % Red Cell Distribution Width 15.3 % Platelet Count 261 TH/MM3 Mean Platelet Volume 8.0 FL Neutrophils (%) (Auto) 64.4 % Lymphocytes (%) (Auto) 16.7 % Monocytes (%) (Auto) 10.7 % Eosinophils (%) (Auto) 7.7 % Basophils (%) (Auto) 0.5 % Neutrophils # (Auto) 2.5 TH/MM3 Lymphocytes # (Auto) 0.6 TH/MM3 Monocytes # (Auto) 0.4 TH/MM3 Eosinophils # (Auto) 0.3 TH/MM3 Basophils # (Auto) 0.0 TH/MM3 CBC Comment DIFF FINAL Differential Comment Blood Urea Nitrogen 30 MG/DL Creatinine 1.50 MG/DL Random Glucose 85 MG/DL Calcium Level 9.4 MG/DL Magnesium Level 2.8 MG/DL Sodium Level 141 MEQ/L Potassium Level 4.3 MEQ/L Chloride Level 106 MEQ/L Carbon Dioxide Level 26.2 MEQ/L Anion Gap 9 MEQ/L Estimat Glomerular Filtration Rate 33 ML/MIN Total Creatine Kinase 54 U/L Troponin I 0.08 NG/ML B-Type Natriuretic Peptide GREATER THAN 5000 PG/ML MDM Medical Decision Making Medical Screen Exam Complete: Yes Emergency Medical Condition: Yes Medical Record Reviewed: Yes Differential Diagnosis Pneumonia, COPD, renal failure, CHF exacerbation, volume overload, anemia Narrative Course Chest x-ray shows increased interstitial markings consistent with pulmonary edema 40 mg IV Lasix given with good response BNP > 5000 admission for CHF management Vital Signs Date Time Temp Pulse Resp B/P (MAP) Pulse Ox O2 Delivery O2 Flow Rate FiO2 06/16/17 14:49 61 20 188/85 (119) 98 Nasal Cannula 2.00 06/16/17 13:29 98 06/16/17 13:29 Nasal Cannula 2.00 06/16/17 13:28 68 20 189/74 (112) 97 06/16/17 12:15 97.6 67 20 192/81 (118) 94 CBC & BMP Diagram 06/16/17 13:25 Calcium Level 9.4, Magnesium Level 2.8 H CXR: pulmonary edema d/w Dr Olson for [facility] Diagnosis Primary Impression: Congestive heart failure (CHF) Qualified Codes: I50.9 - Heart failure, unspecified Admitting Information Admitting Physician Requests: Observation Bill Stoddard MD Jun 16, 2017 13:15
--- NOTE | 2017-06-16 13:24 | RADRPT ---
EXAM DATE/TIME: 06/16/2017 13:04 [place] COMPARISON: CHEST PA & LAT, April 02, 2016, 6:15. INDICATIONS : Short of breath. MEDICAL HISTORY : None. SURGICAL HISTORY : None. ENCOUNTER: Initial ACUITY: 3 days PAIN SCORE: 7/10 LOCATION: Bilateral chest FINDINGS: The heart size is normal. There is prominence of the right hilum. There is diffuse increased intersti tial markings. The there is degenerative change at the left glenohumeral joint. CONCLUSION: 1. Prominence/enlargement of the right hilum. 2. Diffuse increased interstitial markings likely related to underlying interstitial disease or edema . Raz Gutierrez MD on June 16, 2017 at 13:19 Board Certified Radiologist. This report was verified electronically.
[2017-06-16 13:45] LABS: AUTOMATED NEUTROPHIL # 2.5 TH/MM3 (1.8-7.7); BASOPHIL % 0.5 % (0.0-2.0); EOSINOPHIL # 0.3 TH/MM3 (0-0.4); EOSINOPHIL % 7.7 % (0.0-4.0); HEMATOCRIT 35.4 % (35.0-46.0); HEMOGLOBIN 11.9 GM/DL (11.6-15.3); LYMPH % 16.7 % (9.0-44.0); LYMPHOCYTE # 0.6 TH/MM3 (1.0-4.8); MEAN CELL VOLUME 90.4 FL (80.0-100.0); MEAN CORPUSCULAR HEMOGLOBIN 30.4 PG (27.0-34.0); MEAN CORPUSCULAR HGB CONC 33.6 % (32.0-36.0); MONO % 10.7 % (0.0-8.0); MONOCYTE # 0.4 TH/MM3 (0-0.9); NEUT % 64.4 % (16.0-70.0); PLATELET COUNT 261 TH/MM3 (150-450); RED BLOOD COUNT 3.91 MIL/MM3 (4.00-5.30); RED CELL DISTRIBUTION WIDTH 15.3 % (11.6-17.2); WHITE BLOOD COUNT 3.8 TH/MM3 (4.0-11.0)
[2017-06-16 13:54] LABS: CALCIUM 9.4 MG/DL (8.5-10.1)
[2017-06-16 13:55] LABS: BICARBONATE 26.2 MEQ/L (21.0-32.0); MAGNESIUM 2.8 MG/DL (1.5-2.5)
[2017-06-16 13:58] LABS: CREATININE 1.5 MG/DL (0.50-1.00)
[2017-06-16 14:02] LABS: TROPONIN I 0.08 NG/ML (0.02-0.05)
[2017-06-16] MEDS ORDERED: SODIUM CHLORIDE 0.9% FLUSH 10 ML FLUSH IV FLUSH PRN (15:15)
--- NOTE | 2017-06-16 15:29 | HHI.HP ---
[facility] Natalie Martinez MD Admission Diagnosis CHF Exacerbation Diagnoses: Chief Complaint: Shortness of breath and edema Travel History International Travel<30 Days: No Contact w/Intl Traveler <30 Da: No Traveled to Known Affected Are: No History of Present Illness This patient is a very pleasant 87-year-old female with a history of 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 Patient has presented now with dyspnea on exertion and increased lower extremity edema. She is gained 5 pounds in the last 2 days. She did not take extra Lasix but took an over-the- counter herbal diuretic. Patient says she has been peeing a lot but not quite enough. In the emergency room she was given IV Lasix and appears to have put out quite a bit of urine. Her blood pressure was high on arrival over 200 systolic. Patient's blood pressures improved somewhat after Lasix. X-ray on my review is consistent with congestive heart failure and the patient has chronically elevated BNP Review of Systems Constitutional: COMPLAINS OF: Weight gain, DENIES: Diaphoretic episodes, Fatigue, Fever, Weight loss, Chills, Dizziness, Change in appetite, Night Sweats Endocrine: DENIES: Abnorml menstrual pattern, Heat/cold intolerance, Polydipsia , Polyuria, Polyphagia Eyes: DENIES: Blurred vision, Diplopia, Eye inflammation, Eye pain, Vision loss , Photosensitivity, Double Vision Ears, nose, mouth, throat: DENIES: Tinnitus, Hearing loss, Vertigo, Nasal discharge, Oral lesions, Throat pain, Hoarseness, Ear Pain, Running Nose, Epistaxis, Sinus Pain, Toothache, Odynophagia Respiratory: COMPLAINS OF: Shortness of breath, DENIES: Apneas, Cough, Snoring , Wheezing, Hemoptysis, Sputum production Cardiovascular: COMPLAINS OF: Lower Extremity Edema, DENIES: Chest pain, Palpitations, Syncope, Dyspnea on Exertion, PND, Orthopnea, Claudication Gastrointestinal: DENIES: Abdominal pain, Black stools, Bloody stools, Constipation, Diarrhea, Nausea, Vomiting, Difficulty Swallowing, Anorexia Genitourinary: DENIES: Abnormal vaginal bleeding, Dysmenorrhea, Dyspareunia, Sexual dysfunction, Urinary frequency, Urinary incontinence, Urgency, Hematuria , Dysuria, Nocturia, Vaginal discharge Musculoskeletal: DENIES: Joint pain, Muscle aches, Stiffness, Joint Swelling, Back pain, Neck pain Integumentary: DENIES: Abnormal pigmentation, Pruritus, Rash, Nail changes, Breast masses, Breast skin changes, Nipple discharge Hematologic/lymphatic: DENIES: Bruising, Lymphadenopathy Immunologic/allergic: DENIES: Eczema, Urticaria Neurologic: DENIES: Abnormal gait, Headache, Localized weakness, Paresthesias, Seizures, Speech Problems, Tremor, Poor Balance Psychiatric: DENIES: Anxiety, Confusion, Mood changes, Depression, Hallucinations, Agitation, Suicidal Ideation, Homicidal Ideation, Delusions Except as stated in HPI: all other systems reviewed are Neg Past Family Social History Past Medical History Congestive heart failure Hypertension Hypothyroidism Hyperlipidemia Chronic kidney disease CMV nephritis Basal cell carcinoma Chronic anemia Diverticulosis Aortic regurgitation History of venous thromboembolic Past Surgical History Left knee replacement Basal cell cancer removal on left face Colostomy status post revision Allergies: Coded Allergies: ciprofloxacin (Unverified Allergy, Severe, AFFECTS ABILITY TO WALK, ) levofloxacin (Unverified Allergy, Severe, AFFECTED NERVES, 06/16/17) Physical Exam Vital Signs Vital Signs Date Time Temp Pulse Resp B/P (MAP) Pulse Ox O2 Delivery O2 Flow Rate FiO2 06/16/17 14:49 61 20 188/85 (119) 98 Nasal Cannula 2.00 06/16/17 13:29 98 06/16/17 13:29 Nasal Cannula 2.00 06/16/17 13:28 68 20 189/74 (112) 97 06/16/17 12:15 97.6 67 20 192/81 (118) 94 Physical Exam GENERAL: This is a well-nourished, well-developed patient, in short of breath at rest pparent distress. SKIN: No rashes, ecchymoses or lesions. Cool and dry. HEAD: Atraumatic. Normocephalic. No temporal or scalp tenderness. EYES: Pupils equal round and reactive. Extraocular motions intact. No scleral icterus. No injection or drainage. ENT: Nose without bleeding, purulent drainage or septal hematoma. Throat without erythema, tonsillar hypertrophy or exudate. Uvula midline. Airway patent. NECK: Trachea midline. No JVD or lymphadenopathy. Supple, nontender, no meningeal signs. CARDIOVASCULAR: Regular rate and rhythm without murmurs, gallops, or rubs. RESPIRATORY: Bibasilar crackles. Breath sounds equal bilaterally. No wheezes, rales, or rhonchi. GASTROINTESTINAL: Abdomen soft, non-tender, nondistended. No hepato-splenomegaly , or palpable masses. No guarding. MUSCULOSKELETAL: Extremities without clubbing, cyanosis, or edema. No joint tenderness, effusion, there is +3 bilateral leg edema. No calf tenderness. Negative Homans sign bilaterally. NEUROLOGICAL: Awake and alert. Cranial nerves II through XII intact. Motor and sensory grossly within normal limits. Five out of 5 muscle strength in all muscle groups. Normal speech. Laboratory Laboratory Tests Test 06/16/17 13:25 White Blood Count 3.8 Red Blood Count 3.91 Hemoglobin 11.9 Hematocrit 35.4 Mean Corpuscular Volume 90.4 Mean Corpuscular Hemoglobin 30.4 Mean Corpuscular Hemoglobin Concent 33.6 Red Cell Distribution Width 15.3 Platelet Count 261 Mean Platelet Volume 8.0 Neutrophils (%) (Auto) 64.4 Lymphocytes (%) (Auto) 16.7 Monocytes (%) (Auto) 10.7 Eosinophils (%) (Auto) 7.7 Basophils (%) (Auto) 0.5 Neutrophils # (Auto) 2.5 Lymphocytes # (Auto) 0.6 Monocytes # (Auto) 0.4 Eosinophils # (Auto) 0.3 Basophils # (Auto) 0.0 CBC Comment DIFF FINAL Differential Comment Blood Urea Nitrogen 30 Creatinine 1.50 Random Glucose 85 Calcium Level 9.4 Magnesium Level 2.8 Sodium Level 141 Potassium Level 4.3 Chloride Level 106 Carbon Dioxide Level 26.2 Anion Gap 9 Estimat Glomerular Filtration Rate 33 Total Creatine Kinase 54 Troponin I 0.08 B-Type Natriuretic Peptide GREATER THAN 5000 Result Diagram: 06/16/17 1325 06/16/17 1325 Imaging Chest x-ray shows pulmonary vascular fullness consistent with pulmonary congestion Septic Shock Reassessment Septic shock perfusion: reassessment completed Caprini VTE Risk Assessment Caprini VTE Risk Assessment: Mod/High Risk (score >= 2) Caprini Risk Assessment Model Point Value = 1 Point Value = 2 Point Value = 3 Point Value = 5 Age 41-60 Minor surgery BMI > 25 kg/m2 Swollen legs Varicose veins or History of unexplained or recurrent spontaneous Oral contraceptives or hormone replacement Sepsis (< 1 month) Serious lung disease, including pneumonia (< 1 month) Abnormal pulmonary function Acute myocardial infarction Congestive heart failure (< 1 month) History of inflammatory bowel disease Medical patient at bed rest Age 61-74 Arthroscopic surgery Major open surgery (> 45 min) Laparoscopic surgery (> 45 min) Malignancy Confined to bed (> 72 hours) Immobilizing plaster cast Central venous access Age >= 75 History of VTE Family history of VTE Factor V Leiden Prothrombin [id number] Lupus anticoagulant Anticardiolipin antibodies Elevated serum homocysteine Heparin-induced thrombocytopenia Other congenital or acquired thrombophilia Stroke (< 1 month) Elective arthroplasty Hip, pelvis, or leg fracture Acute spinal cord injury (< 1 month) Prophylaxis Regimen Total Risk Factor Score Risk Level Prophylaxis Regimen 0-1 Low Early ambulation 2 Moderate Order ONE of the following: *Sequential Compression Device (SCD) *Heparin 5000 units SQ BID 3-4 Higher Order ONE of the following medications: *Heparin 5000 units SQ TID *Enoxaparin/Lovenox 40 mg SQ daily (WT < 150 kg, CrCl > 30 mL/min) *Enoxaparin/Lovenox 30 mg SQ daily (WT < 150 kg, CrCl > 10-29 mL/min) *Enoxaparin/Lovenox 30 mg SQ BID (WT < 150 kg, CrCl > 30 mL/min) AND/OR *Sequential Compression Device (SCD) 5 or more Highest Order ONE of the following medications: *Heparin 5000 units SQ TID (Preferred with Epidurals) *Enoxaparin/Lovenox 40 mg SQ daily (WT < 150 kg, CrCl > 30 mL/min) *Enoxaparin/Lovenox 30 mg SQ daily (WT < 150 kg, CrCl > 10-29 mL/min) *Enoxaparin/Lovenox 30 mg SQ BID (WT < 150 kg, CrCl > 30 mL/min) AND *Sequential Compression Device (SCD) Assessment and Plan Problem List: (1) Hypothyroidism ICD Code: E03.9 - Hypothyroidism Status: Acute Plan: Continue Synthroid (2) Hypertension, benign ICD Code: I10 - Hypertension, benign Status: Acute Plan: Currently uncontrolled and likely due to pulmonary edema and congestive heart failure We will continue patient's home medications and adjust as needed Imdur was added last year for elevated blood pressure however it has been quite controlled per records here (3) Elevated troponin I level ICD Code: R79.89 - Other specified abnormal findings of blood chemistry Status: Acute Plan: Likely chronic in nature given patient's cardiac history No further workup will be done as the patient does not want any further invasive therapy would like to consider comfort care options We will continue her beta-samantha and follow on telemetry Continue asa (4) Congestive heart failure (CHF) ICD Code: I50.9 - Heart failure, unspecified Status: Acute Plan: This appears to be valvular in nature as the patient has a history of aortic valve insufficiency. His chronic kidney disease and has lost for comfort care measures in the past. She would like to continue with medical management for now and consider hospice options and has requested a hospice team be called to continue her goals for comfort care. In the past her bulk plant operator had tried to increase her hydralazine as her renal function does not tolerate KARLA inhibitors or and ARB. The hydralazine increased caused a lot of dizziness and she did not want to take it. Since that time she has not been a part of the bulk plant operator practice. The patient at this time would like minimal adjustments of but is agreeable to adjust her diuretic. We will follow-up echocardiogram and continue management (5) CKD (chronic kidney disease) ICD Code: N18.9 - Chronic kidney disease Status: Acute Plan: Currently stable We will follow closely with fluid balance is being adjusted Avoid nephrotoxic injury Assessment and Plan Plan of care to be determined by hospital course Code Status DO NOT RESUSCITATE Discussed Condition With Patient, ER MD Physician Certification 2 Midnight Certification Type: Admission for Inpatient Services Order for Inpatient Services The services are ordered in accordance with Medicare regulations or non- Medicare payer requirements, as applicable. In the case of services not specified as inpatient-only, they are appropriately provided as inpatient services in accordance with the 2-midnight benchmark. Estimated LOS (days): 2 2 days is the estimated time the patient will need to remain in the hospital, assuming treatment plan goals are met and no additional complications. Post-Hospital Plan: Home Problem Qualifiers (1) Congestive heart failure (CHF): Qualified Codes: I50.9 - Heart failure, unspecified Arianna Olson MD Jun 16, 2017 15:29
[2017-06-16] MEDS: FUROSEMIDE 40 MG/4 ML VIAL IVP SCH (18:04)
[2017-06-16] MEDS ORDERED: hydrALAZINE HCL 100 MG TAB PO SCH (21:00)
[2017-06-16] MEDS: hydrALAZINE HCL 25 MG TAB PO SCH (21:14)
[2017-06-16] MEDS: CARVEDILOL 6.25 MG TAB PO SCH (21:14)
[2017-06-16] MEDS: SODIUM CHLORIDE 0.9% FLUSH 10 ML FLUSH IV FLUSH SCH (21:14)
[2017-06-16] MEDS: HEPARIN SODIUM - SQ 10,000 UNITS/ML VIAL SQ SCH (21:14)
[2017-06-17] VITALS (8 sets, daily range): BP systolic 105–165; BP diastolic 60–84; PULSE 57–78; RESP 17–20; TEMP 96.9–98.6; O2SAT 94–100
[2017-06-17] MEDS ORDERED: LEVOTHYROXINE SODIUM 125 MCG TAB PO SCH (06:00)
[2017-06-17 08:00] LABS: BICARBONATE 29.3 MEQ/L (21.0-32.0); CALCIUM 8.9 MG/DL (8.5-10.1)
[2017-06-17 08:04] LABS: CREATININE 1.5 MG/DL (0.50-1.00)
[2017-06-17] MEDS: SODIUM CHLORIDE 0.9% FLUSH 10 ML FLUSH IV FLUSH SCH (08:10)
[2017-06-17] MEDS: hydrALAZINE HCL 25 MG TAB PO SCH (08:10)
[2017-06-17] MEDS: FUROSEMIDE 40 MG/4 ML VIAL IVP SCH (08:10)
[2017-06-17] MEDS: CARVEDILOL 6.25 MG TAB PO SCH (08:10)
[2017-06-17] MEDS: HEPARIN SODIUM - SQ 10,000 UNITS/ML VIAL SQ SCH (08:11)
[2017-06-17] MEDS ORDERED: MAGNESIUM OXIDE 400 MG TAB PO SCH (09:00)
[2017-06-17] MEDS ORDERED: ISOSORBIDE MONONITRATE 20 MG TAB PO SCH (09:00)
[2017-06-17] MEDS ORDERED: NIFEdipine 30 MG SUSTAINED RELEASE TAB PO SCH (09:00)
[2017-06-17] MEDS ORDERED: OXYGENDME NAS.CANULA (15:40)
--- NOTE | 2017-06-17 15:40 | HHI.DCPOC ---
Discharge Care Plan Diagnosis: (1) Congestive heart failure (CHF) (2) Hypoxemia (3) Elevated troponin I level (4) CKD (chronic kidney disease) (5) Aortic insufficiency (6) Accelerated hypertension Goals to Promote Your Health * To prevent worsening of your condition and complications * To maintain your health at the optimal level Directions to Meet Your Goals Take your medications as prescribed Follow your dietary instruction Follow activity as directed Keep your appointments as scheduled Take your immunizations and boosters as scheduled If your symptoms worsen call your PCP, if no PCP go to Urgent Care Center or Emergency Room Smoking is Dangerous to Your Health. Avoid second hand smoke Call the 24-hour hour crisis hotline for domestic abuse at [facility] Jun 17, 2017 15:40
--- NOTE | 2017-06-17 15:46 | HHI.DS ---
Discharge Summary Admission Date Jun 16, 2017 at 14:59 Discharge Date: Jun 17, 2017 Admitting Diagnosis CHF Exacerbation (1) Congestive heart failure (CHF) ICD Code: I50.9 - Heart failure, unspecified Status: Acute (2) Elevated troponin I level ICD Code: R79.89 - Other specified abnormal findings of blood chemistry Status: Acute (3) CKD (chronic kidney disease) ICD Code: N18.9 - Chronic kidney disease Status: Acute (4) Hypothyroidism ICD Code: E03.9 - Hypothyroidism Status: Acute (5) Hypertension, benign ICD Code: I10 - Hypertension, benign Status: Acute Procedures None Brief History - From Admission This patient is a very pleasant 87-year-old female with a history of 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 Patient has presented now with dyspnea on exertion and increased lower extremity edema. She is gained 5 pounds in the last 2 days. She did not take extra Lasix but took an over-the- counter herbal diuretic. Patient says she has been peeing a lot but not quite enough. In the emergency room she was given IV Lasix and appears to have put out quite a bit of urine. Her blood pressure was high on arrival over 200 systolic. Patient's blood pressures improved somewhat after Lasix. X-ray on my review is consistent with congestive heart failure and the patient has chronically elevated BNP CBC/BMP: 06/16/17 1325 06/17/17 0722 Significant Findings Laboratory Tests Test 06/16/17 13:25 06/17/17 07:22 White Blood Count 3.8 TH/MM3 (4.0-11.0) Red Blood Count 3.91 MIL/MM3 (4.00-5.30) Monocytes (%) (Auto) 10.7 % (0.0-8.0) Eosinophils (%) (Auto) 7.7 % (0.0-4.0) Lymphocytes # (Auto) 0.6 TH/MM3 (1.0-4.8) Blood Urea Nitrogen 30 MG/DL (7-18) 29 MG/DL (7-18) Creatinine 1.50 MG/DL (0.50-1.00) 1.50 MG/DL (0.50-1.00) Magnesium Level 2.8 MG/DL (1.5-2.5) Estimat Glomerular Filtration Rate 33 ML/MIN (>89) 33 ML/MIN (>89) Troponin I 0.08 NG/ML (0.02-0.05) B-Type Natriuretic Peptide GREATER THAN 5000 PG/ML Imaging Last Impressions Chest X-Ray 06/16/17 1249 Signed Impressions: Service Date/Time: Friday, June 16, 2017 13:04 - CONCLUSION: 1. Prominence/enlargement of the right hilum. 2. Diffuse increased interstitial markings likely related to underlying interstitial disease or edema. Raz Gutierrez MD PE at Discharge GENERAL: Well-developed, well-nourished, in no acute distress. alert and orientated HEENT: Head is normocephalic without any lesions or masses noted. Facial features are symmetric. Eyes:. Extraocular muscles are intact. Conjunctivae were clear. NECK: Supple without any masses. Trachea midline no deviation. No JVD, CARDIAC: Regular rhythm, regular rate. S1/S2 are heard. 2/6 whistling aortic murmur. No Gallops or rubs. LUNGS: Clear to auscultation bilaterally. No wheeze, rhonchi or rales. No use of accessory muscles on inspiration or expiration. ABDOMEN: Soft, nontender. Nondistended. Bowel sounds heard in all 4 quadrants. No organomegaly or masses. Negative rebound, negative guarding EXTREMITIES: 2+ pitting edema noted bilateral lower extremities, pulses are equal bilaterally. No cyanosis or clubbing NEUROLOGY: Mood and affect appear appropriate. Cranial nerves II through XII grossly intact. Moving all extremities, speech is clear Hospital Course 87-year-old female with known history of hypertension, chronic kidney disease, aortic valve insufficiency who presented to hospital because of shortness of breath, dyspnea. Patient was found to have congestive heart failure and recommended admission. However patient had hospice consult at request of the family and patient. They did undergo evaluation and wished to go home with hospice care. As originally set up that once patient was stabilized and hospitalization was complete then patient will be discharged home and hospice would assume care at that point. However upon talking to the patient today she does not want to continue treatment in the hospital. She states that her breathing is much better than she wants to go home. I discussed with her that presently new knee continue workup. She does understand and indicates that she know she has a bad heart that they cannot do any surgery on, she knows that she has bad kidneys that prevent her from having further testing or procedures. She is a full capacity at this time and does understand completely her medical condition and outcome. I discussed with the patient her elevated blood pressure was could have promoted her admission to the hospital. She does indicate that her pan puller is been trying to adjust her medication, however she does not want to have the increase performed because a causing her to have lightheadedness and dizziness. I discussed with her to follow-up with her primary medical doctor for management of her blood pressure and medication changes. Patient has clinically improved at this time. Very eager to go home. She has discussed with hospice further care upon discharge. She would like to be discharged home with hospice at this time. We' ll respect the patient's wishes and arrange hospice to assume medical management upon discharge. Pt Condition on Discharge: Fair Discharge Disposition: Hospice/ Home Discharge Time: > 30 minutes Discharge Instructions DIET: Follow Instructions for: Heart Healthy Diet Activities you can perform: Regular-No Restrictions Follow up Referrals: PCP Follow-up - 1 Week New Medications: Oxygen (O2) (Oxygen (O2)) Device LITER REINA.CANULA CONTINUOUS for Prevent Hypoxemia, #2 Oxygen Concentrator Portable Gaseous 2 L/min via Nasal Canula Continuous For 99 months Continued Medications: Carvedilol (Carvedilol) 6.25 Mg Tab 6.25 MG PO BID, #60 TAB 0 Refills Furosemide (Lasix) 20 Mg Tab 20 MG PO DAILY for edema, #30 TAB 1 Refill Hydralazine (Hydralazine) 100 Mg Tab 25 MG PO BID for Blood Pressure Management, TAB 0 Refills Take with meals Isosorbide Mononitrate (Isosorbide Mononitrate) 20 Mg Tab 20 MG PO DAILY for Prevent Chest Pain, #30 TAB 3 Refills Take 2 doses 7 hours apart. Lactobacillus Acidophilus (Probiotic) 10 Billion Cell Cap Unknown Dose PO TIDAC for Nutritional Supplement, #90 CAP 0 Refills Levothyroxine (Synthroid) 125 Mcg Tab 125 MCG PO DAILY for Thyroid, #30 TAB 0 Refills Magnesium Oxide (Magnesium Oxide) 400 Mg Tab 400 MG PO DAILY for Nutritional Supplement, TAB 0 Refills Nifedipine ER 24 HR (Procardia XL) 30 Mg Tab 30 MG PO DAILY, #30 TAB 0 Refills Vitamins C & E (Cranberry Urinary Comfort) 1 Cap 1 CAP PO DAILY for Urinary Symptom Managemen, CAP 0 Refills [Cq10] () 100 MG PO DAILY Elmer Gilmore Jun 17, 2017 15:46
--- NOTE | 2017-06-18 00:32 | EKG ---
Date Performed: 06/16/2017 Time Performed: 12:30:33 PTAGE: 87 years EKG: Sinus rhythm LEFT VENTRICULAR HYPERTROPHY AND ST-T CHANGE ABNORMAL ECG INTERPRETATION BASED ON A DEFAULT AGE OF 4 0 YEARS PREVIOUS TRACING : 04/02/2016 11.36 DOCTOR: Cheikh Aviles Interpretating Date/Time 06/18/2017 00:17:13
[2017-06-18] MEDS ORDERED: COEN1CAP PO (13:34)
== END 2017-06-17 17:52 | disposition hospice, home (50) | DRG 293 ==
LOC: PHED 12:10 → PHEDA 14:59 → PH3A 20:02
PROVIDERS: ADMIT Hospitalist; ATTEND Hospitalist
DX: I13.0 Hypertensive heart and chronic kidney disease with heart failure and stage 1 through stage 4 chronic kidney disease, or unspecified chronic kidney disease (principal); D64.9 Anemia, unspecified; I35.1 Nonrheumatic aortic (valve) insufficiency; E03.9 Hypothyroidism, unspecified; I50.9 Heart failure, unspecified; R09.02 Hypoxemia; N18.9 Chronic kidney disease, unspecified; R79.89 Other specified abnormal findings of blood chemistry; E07.9 Disorder of thyroid, unspecified; E78.5 Hyperlipidemia, unspecified; K57.90 Diverticulosis of intestine, part unspecified, without perforation or abscess without bleeding; M19.90 Unspecified osteoarthritis, unspecified site; Z96.652 Presence of left artificial knee joint; Z85.828 Personal history of other malignant neoplasm of skin; Z66 Do not resuscitate
CPT/HCPCS: 71045; 80048; 82550; 83735; 83880; 84443; 84484; 85025; 93005; 96374; J1644; J1940